=== PATIENT | female | born 1980 | race African-American/Black ===

== ENCOUNTER 2016-05-16 20:02 | Emergency (ER) | payer MEDICAID ==
[~2016-05-16] VITALS: Ht 167.6 cm; Wt 110.5 kg
[~2016-05-16 20:02] MED LIST: DEXT5LOZ3 MT; VIST50CA PO
[2016-05-16 20:17] VITALS: BP 139/82; PULSE 65; RESP 18; TEMP 97.9; O2SAT 98
[2016-05-16 21:52] VITALS: BP 139/82; PULSE 65; RESP 18; TEMP 97.9; O2SAT 98
--- NOTE | 2016-05-16 22:30 | PD ---
HPI Chief Complaint: [employer] Internship Problem/Complaint Time Seen by Provider: 22:00 Travel History International Travel<30 days: No Contact w/Intl Traveler<30days: No Traveled to known affect area: No History of Present Illness HPI The patient is a 35-year-old female who states that she was having sex last Monday when she thought a condom may have gotten stuck inside her giving her vaginal irritation. The patient is not known to be allergic to latex. She has had vaginal irritation and itching since. She is Monistat at home and large volumes. She does not think there is any possibility of . She also has dysuria and possible frequency. She denies any fever or flank pain. She denies any nausea, vomiting or diarrhea. She is a frequent visitor to the emergency department and has been here approximately 12 times in 2016. Most of her visits have been for vaginitis and pelvic complaints. PFSH Past Medical History Anemia: Yes Heart Rhythm Problems: Yes (HEART MURMUR) Cardiovascular Problems: Yes (HEART MURMUR) Diminished Hearing: No Endocrine: No Gastrointestinal Disorders: No Immune Disorder: No Musculoskeletal: No Neurologic: No Reproductive: Yes ( and d & C.) Respiratory: No Immunizations Current: Yes Tetanus Vaccination: Unknown Influenza Vaccination: No PNEUMOCCOCAL Vaccine (Year): 2 ?: Not LMP: Apr : 3 Para: 2 Miscarriage: 1 Dilation and Curettage (D&C): Yes (1998) Past Surgical History Section: Yes (X 2) Other Surgery: Yes (C/S X2) Social History Alcohol Use: No Tobacco Use: No Substance Use: No Allergies-Medications (Allergen,Severity, Reaction): Coded Allergies: *MDRO Multi-Drug Resistant Organism (Unverified Adverse Reaction, Unknown , 05/16/16) MRSA finger 10/2014. Reported Meds & Prescriptions Reported Meds & Active Scripts Active No Active Prescriptions or Reported Medications Review of Systems Except as stated in HPI: all other systems reviewed are Neg Physical Exam Narrative GENERAL: The patient is obese, alert, oriented 3 and slight apparent distress with her vaginal discomfort. SKIN: Warm and dry. HEAD: Atraumatic. Normocephalic. EYES: Pupils equal and round. No scleral icterus. No injection or drainage. ENT: No nasal bleeding or discharge. Mucous membranes pink and moist. NECK: Trachea midline. No JVD. CARDIOVASCULAR: Regular rate and rhythm. No murmur appreciated. RESPIRATORY: No accessory muscle use. Clear to auscultation. Breath sounds equal bilaterally. GASTROINTESTINAL: Abdomen soft, non-tender, nondistended. Hepatic and splenic margins not palpable. MUSCULOSKELETAL: No obvious deformities. No clubbing. No cyanosis. No edema. NEUROLOGICAL: Awake and alert. No obvious cranial nerve deficits. Motor grossly within normal limits. Normal speech. PSYCHIATRIC: Appropriate mood and affect; insight and judgment normal. GENITOURINARY: Normal external genitalia without lesions or erythema. Vaginal vault without blood but there is a copious white discharge in the vault which the patient states is mostly Monistat. This took a fair amount of time to clean out so that I could see the vault. No condom was noted but the vaginal wall was irritated.. Cervical os was closed without drainage. No cervical motion tenderness. Uterus nontender and nonenlarged. Bilateral adnexa nontender without masses. Data Data Last Documented VS Vital Signs Date Time Temp Pulse Resp B/P Pulse Ox O2 Delivery O2 Flow Rate FiO2 05/16/16 22:56 56 18 155/78 98 Room Air 05/16/16 21:52 97.9 Orders Urinalysis - C+S If Indicated (05/16/16 22:21) Ed Urine Pregnancytest Poc (05/16/16 22:21) Gc And Chlamydia Pcr (05/16/16 22:21) Wet Prep Profile (05/16/16 22:21) Labs Laboratory Tests Test 05/16/16 22:30 Urine Collection Type CLEAN CATCH Urine Color YELLOW Urine Turbidity MOD Urine pH 6.0 Urine Specific [place] 1.015 Urine Protein NEG mg/dL Urine Glucose (UA) NEG mg/dL Urine Ketones NEG mg/dL Urine Occult Blood TRACE Urine Nitrite NEG Urine Bilirubin NEG Urine Leukocyte Esterase MOD Urine RBC 4-9 /hpf Urine WBC 3-5 /hpf Urine Squamous Epithelial > 8 /hpf Cells Urine Bacteria OCC /hpf Urine Mucus OCC /lpf Microscopic Urinalysis Comment CULT NOT INDICATED Clue Cells (Wet Prep) NONE SEEN Vaginal Trichomonas (Wet Prep) NONE SEEN Vaginal Yeast (Wet Prep) NONE SEEN MDM Medical Decision Making Medical Screen Exam Complete: Yes Emergency Medical Condition: Yes Medical Record Reviewed: Yes Differential Diagnosis Retained vaginal foreign body, vaginitis, bacterial vaginosishighly unlikely, yeast infectionunlikely, Trichomonas vaginitisunlikely Narrative Course The patient appears to have vaginitis. The laboratory on the wet prep shows none of the other possibilities are present. The vaginitis is apparently nonspecific. 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 Diagnosis Primary Impression: Vaginitis Additional Instructions: As we discussed, use a vinegar douche. There is no evidence for any other cause of the vaginal discharge. Med/Other Pt SpecificInfo: No Change to Meds Scripts No Active Prescriptions or Reported Meds Disposition: DISCHARGE HOME Condition: Stable Mata Irizarry MD May 16, 2016 22:29
[2016-05-16 22:51] LABS: BLOOD, URINE TRACE (NEG); GLUCOSE,URINE NEG (NEG); KETONE, URINE NEG (NEG); NITRITE,URINE NEG (NEG)
[2016-05-16 22:56] VITALS: BP 155/78; PULSE 56; RESP 18; O2SAT 98
[2016-05-16 23:07] LABS: BACTERIA, URINE OCC /hpf; METHOD OF COLLECTION CLEAN CATCH; MUCUS URINE OCC /lpf (OCC); SQUAMOUS EPITHELIAL CELL URINE > 8 /hpf (0-5); URINE COLOR YELLOW (YELLW/STRAW)
[2016-05-16 23:10] LABS: COMMENT (UR) CULT NOT INDICATED; CULTURE IF INDICATED CULT NOT INDICATED
[2016-05-17 11:52] LABS: CHLAMYDIA PCR NOT DETECTED (NOT DETECT); NEISSERIA PCR NOT DETECTED (NOT DETECT)
== END 2016-05-16 23:47 | disposition home or self-care (01) ==
LOC: PHED 20:02
DX: N76.0 Acute vaginitis (principal); R30.0 Dysuria; Z86.2 Personal history of diseases of the blood and blood-forming organs and certain disorders involving the immune mechanism; Z86.79 Personal history of other diseases of the circulatory system; Z87.42 Personal history of other diseases of the female genital tract
CPT/HCPCS: 81001; 84703; 87210; 87491; 87591; 99283

== ENCOUNTER 2016-08-13 09:30 | Emergency (ER) | payer MEDICAID ==
[2016-08-13 09:36] VITALS: BP 151/56; PULSE 94; RESP 18; TEMP 97.4; O2SAT 98
[2016-08-13] MEDS ORDERED: ZOFR4TAB PO (11:40)
== END 2016-08-13 09:52 | disposition left against medical advice (07) ==
LOC: PHED 09:30
DX: R73.9 Hyperglycemia, unspecified (principal)
CPT/HCPCS: 99281

== ENCOUNTER 2016-08-13 11:08 | Emergency (ER) | payer MEDICAID ==
[~2016-08-13] VITALS: Ht 170.2 cm; Wt 106.0 kg
[2016-08-13 11:10] VITALS: BP 133/95; PULSE 88; RESP 18; TEMP 98.6; O2SAT 99
--- NOTE | 2016-08-13 11:38 | PD ---
HPI Chief Complaint: GI Complaint Time Seen by Provider: 11:17 Travel History International Travel<30 days: No Contact w/Intl Traveler<30days: No Traveled to known affect area: No History of Present Illness HPI The patient was seen and examined in the presence of the nurse. She complains of nausea vomiting diarrhea. Duration one day. Multiple other family members have the same symptoms. No fever. She says that she is 4 weeks but plans on getting an and has had no care. Symptoms severity is mild. Patient came here earlier today but left and then drove herself back in now for evaluation [facility] Past Medical History Anemia: Yes Heart Rhythm Problems: Yes (HEART MURMUR) Cardiovascular Problems: Yes (HEART MURMUR) Diminished Hearing: No Endocrine: No Gastrointestinal Disorders: No Immune Disorder: No Musculoskeletal: No Neurologic: No Reproductive: Yes ( and d & C.) Respiratory: No Immunizations Current: Yes PNEUMOCCOCAL Vaccine (Year): 2 ?: Unknown : 3 Para: 2 Miscarriage: 1 Dilation and Curettage (D&C): Yes (1998) Past Surgical History Section: Yes (X 2) Other Surgery: Yes (C/S X2) Social History Alcohol Use: No Tobacco Use: No Substance Use: No Allergies-Medications (Allergen,Severity, Reaction): Coded Allergies: *MDRO Multi-Drug Resistant Organism (Unverified Adverse Reaction, Unknown , 08/13/16) MRSA finger 10/2014. Reported Meds & Prescriptions Reported Meds & Active Scripts Active No Active Prescriptions or Reported Medications Review of Systems General / Constitutional: No: Fever HENT: No: Headaches Cardiovascular: No: Chest Pain or Discomfort Physical Exam Narrative GASTROINTESTINAL: Abdomen soft, non-tender, nondistended. Positive bowel sounds. No hepato-splenomegaly, or palpable masses. No guarding. SKIN: Focused skin assessment reveals no rash or ulcers. Skin is warm and dry. Palpation shows no induration or nodules. NECK: Symmetrical appearance, midline trachea. No mass or crepitus. Thyroid without enlargement, tenderness, or mass. Data Data Last Documented VS Vital Signs Date Time Temp Pulse Resp B/P Pulse Ox O2 Delivery O2 Flow Rate FiO2 08/13/16 11:10 98.6 88 18 133/95 99 MDM Medical Decision Making Medical Screen Exam Complete: Yes Emergency Medical Condition: Yes Medical Record Reviewed: Yes Differential Diagnosis Gastroenteritis, colitis, food poisoning Narrative Course I have reviewed the patient's electronic medical record. I gave her prescription for Zofran She is euvolemic Benign abdomen with normal vital signs The patient was advised to follow up with their physician and return if they worsen. I have recommended clear liquids for 24 hours, then gradually advance as tolerated. Diagnosis Primary Impression: Nausea vomiting and diarrhea Additional Instructions: The patient was advised to follow up with their physician and return if they worsen. I have recommended clear liquids for 24 hours, then gradually advance as tolerated. Med/Other Pt SpecificInfo: Prescription(s) given Scripts No Active Prescriptions or Reported Meds Disposition: DISCHARGE HOME Condition: Stable Bayron Dominguez MD Aug 13, 2016 11:38
[2016-08-13] MEDS ORDERED: ZOFR4TAB PO (11:40)
== END 2016-08-13 11:50 | disposition home or self-care (01) ==
LOC: PHED 11:08
DX: O21.9 Vomiting of pregnancy, unspecified (principal); Z3A.01 Less than 8 weeks gestation of pregnancy
CPT/HCPCS: 99283

== ENCOUNTER 2017-01-23 22:29 | Emergency (ER) | payer MEDICAID ==
[~2017-01-23] VITALS: Ht 170.2 cm; Wt 98.2 kg
[~2017-01-23 22:29] MED LIST changes: -DEXT5LOZ3 MT; -VIST50CA PO; +ZOFR4TAB PO
[2017-01-23 22:30] VITALS: BP 169/103; PULSE 87; RESP 16; TEMP 97.8; O2SAT 99
[2017-01-23] MEDS ORDERED: ERYTOIN10 EACH EYE (22:52)
--- NOTE | 2017-01-23 22:53 | PD ---
HPI . Conjunctivitis Chief Complaint: Eye Problems/Injury Time Seen by Provider: 22:36 Travel History International Travel<30 days: No Contact w/Intl Traveler<30days: No Traveled to known affect area: No History of Present Illness HPI 36-year-old female presents to the emergency department for evaluation of irritation of bilateral eye. Patient states the symptoms have been present for 2 days. Her son has been treated for conjunctivitis recently. The symptoms started in her right eye and then transferred to her left eye. The patient states when she wakes up after sleeping her eyes are crusted shut. She has mild injection in bilateral sclera. She denies any fevers, chills, malaise, headaches, lightheadedness. She denies any blurred vision. Patient denies any major medical history and doesn't take any daily medication. Patient is not a contact lens wearer or eyeglass wearer. PFSH Past Medical History Anemia: Yes Heart Rhythm Problems: Yes (HEART MURMUR) Cardiovascular Problems: Yes (Heart murmur) Diminished Hearing: No Endocrine: No Gastrointestinal Disorders: No Immune Disorder: No Musculoskeletal: No Neurologic: No Reproductive: Yes ( and d & C.) Respiratory: No Immunizations Current: Yes Tetanus Vaccination: Unknown Influenza Vaccination: No PNEUMOCCOCAL Vaccine (Year): 2 ?: Not : 4 Para: 3 Miscarriage: 1 Dilation and Curettage (D&C): Yes (X's 1) Past Surgical History Section: Yes (X's 3) Gynecologic Surgery: Yes (TUBAL LIGATION AND D&C) Other Surgery: Yes (C/S X2) Social History Alcohol Use: No Tobacco Use: No Substance Use: No Allergies-Medications (Allergen,Severity, Reaction): Coded Allergies: *MDRO Multi-Drug Resistant Organism (Unverified Adverse Reaction, Unknown , 08/13/16) MRSA finger 10/2014. Reported Meds & Prescriptions Reported Meds & Active Scripts Active Erythromycin Opth Oint 5 Mg/Gm Oint 1 Applic EACH EYE QID 7 Days Zofran (Ondansetron HCl) 4 Mg Tab 4 Mg PO Q6HR PRN Review of Systems Except as stated in HPI: all other systems reviewed are Neg Physical Exam Narrative GENERAL: Well-nourished, well-developed patient. SKIN: Focused skin assessment warm/dry. HEAD: Normocephalic. EYES: Bilateral sclera mildly injected. PERRLA demonstrated, extraocular motions intact bilaterally. Visual acuity: Left: 20/40 Right: 20/40 bilateral: 20/30 NECK: Supple, trachea midline. No JVD or lymphadenopathy. CARDIOVASCULAR: Regular rate and rhythm without murmurs, gallops, or rubs. RESPIRATORY: Breath sounds equal bilaterally. No accessory muscle use. GASTROINTESTINAL: Abdomen soft, non-tender, nondistended. MUSCULOSKELETAL: No cyanosis, or edema. BACK: Nontender without obvious deformity. No CVA tenderness. Data Data Last Documented VS Vital Signs Date Time Temp Pulse Resp B/P (MAP) Pulse Ox O2 Delivery O2 Flow Rate FiO2 01/23/17 22:56 01/23/17 22:30 97.8 87 16 99 [facility] Medical Decision Making Medical Screen Exam Complete: Yes Emergency Medical Condition: Yes Differential Diagnosis Differential diagnoses include but not limited to bacterial conjunctivitis, viral conjunctivitis, allergies Narrative Course 36-year-old female presents emergency department for evaluation of bilateral eye irritation that started 2 days ago. Patient denies any fevers chills malaise. Patient denies any blurred vision. Patient states her son was recently treated for conjunctivitis. Bilateral sclera mildly injected. Based on patient's symptoms, clinical presentation, vital sign review and physical exam it is not necessary to admit the patient to the hospital or keep the patient in the emergency department for further evaluation. Patient will be discharged given a prescription for erythromycin ophthalmic ointment and home. Diagnosis Primary Impression: Acute contagious conjunctivitis of both eyes Patient Instructions: Conjunctivitis (ED), General Instructions Departure Forms: Tests/Procedures, Work Release Enter return to work date: Jan 25, 2017 Additional Instructions: Please return to emergency department if your symptoms return or worsen. Follow up with your primary care provider. Wash hands frequently. Take medications as prescribed. Med/Other Pt SpecificInfo: Prescription(s) given Scripts Erythromycin Opth Oint (Erythromycin Opth Oint) 5 Mg/Gm Oint 1 APPLIC EACH EYE QID for Infection for 7 Days, #1 TUBE 0 Refills Prov: MirlandeMaryjane 01/23/17 Disposition: 01 DISCHARGE HOME Condition: Stable Maryjane Nogueira Jan 23, 2017 22:53
== END 2017-01-23 23:04 | disposition home or self-care (01) ==
LOC: PHEFT 22:29
DX: H10.33 Unspecified acute conjunctivitis, bilateral (principal)
CPT/HCPCS: 99283

== ENCOUNTER 2017-02-07 23:35 | Emergency (ER) | payer MEDICAID ==
[~2017-02-07] VITALS: Ht 170.2 cm; Wt 96.4 kg
[~2017-02-07 23:35] MED LIST changes: +ERYTOIN10 EACH EYE
[2017-02-07 23:49] VITALS: BP 144/94; PULSE 86; RESP 18; TEMP 98.3; O2SAT 100
--- NOTE | 2017-02-08 00:25 | PD ---
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 On 01/26/17 the patient took a morning after pill use and 24 hours after having sexual intercourse. About 2 days later she began to notice heavy vaginal bleeding. She has placed several tampons in her vagina and believes that there are 2 of them still in her vagina. She believes that they have been in there since Monday which is 3 days ago. She denies fevers. No abdominal pain. No rash. States that her bleeding has lessened. She does have history of anemia. No history of coagulopathy. She is sexually active with one partner. PFSH Past Medical History Anemia: Yes Heart Rhythm Problems: Yes (HEART MURMUR) Cardiovascular Problems: Yes (Heart murmur) Diminished Hearing: No Endocrine: No Gastrointestinal Disorders: No Immune Disorder: No Musculoskeletal: No Neurologic: No Reproductive: Yes ( and d & C.) Respiratory: No Immunizations Current: Yes PNEUMOCCOCAL Vaccine (Year): 2 ?: Unknown : 4 Para: 3 Miscarriage: 1 Dilation and Curettage (D&C): Yes (X's 1) Past Surgical History Section: Yes (X's 3) Gynecologic Surgery: Yes (TUBAL LIGATION AND D&C) Other Surgery: Yes (C/S X2) Social History Alcohol Use: No Tobacco Use: No Substance Use: No Allergies-Medications (Allergen,Severity, Reaction): Coded Allergies: *MDRO Multi-Drug Resistant Organism (Unverified Adverse Reaction, Unknown , 02/08/17) MRSA finger 10/2014. Reported Meds & Prescriptions Reported Meds & Active Scripts Active No Active Prescriptions or Reported Medications Review of Systems Except as stated in HPI: all other systems reviewed are Neg Physical Exam Narrative GENERAL: Well-developed, well-nourished, comfortable, no apparent distress. SKIN: Focused skin assessment warm/dry. No rash. CARDIOVASCULAR: Regular rate and rhythm. RESPIRATORY: No accessory muscle use. Clear to auscultation. Breath sounds equal bilaterally. GASTROINTESTINAL: Abdomen soft, non-tender, nondistended. DOLL SURGEON: Exam performed in the presence of female nurse. Normal external genitalia. One retained tampon in the posterior vaginal vault that was removed using Lucina forceps. No other foreign bodies noted. Cervix appears normal. Scant bleeding from cervical os. No CMT. No adnexal masses or tenderness. The remove tampon was very foul smelling and brown. MUSCULOSKELETAL: No obvious deformities. No clubbing. No cyanosis. No edema. NEUROLOGICAL: Awake and alert. No obvious cranial nerve deficits. Motor grossly within normal limits. Normal speech. PSYCHIATRIC: Appropriate mood and affect; insight and judgment normal. Data Data Last Documented VS Vital Signs Date Time Temp Pulse Resp B/P (MAP) Pulse Ox O2 Delivery O2 Flow Rate FiO2 02/07/17 23:49 98.3 86 18 144/94 (111) 100 Orders Orders Complete Blood Count With Diff (02/08/17 00:22) Basic Metabolic Panel (Bmp) (02/08/17 00:22) Gc And Chlamydia Pcr (02/08/17 00:22) Wet Prep Profile (02/08/17 00:22) Urinalysis - C+S If Indicated (02/08/17 00:22) Ed Urine Pregnancytest Poc (02/08/17 00:22) Metronidazole (Flagyl) (02/08/17 00:45) Labs Laboratory Tests Test 02/08/17 00:20 02/08/17 00:30 02/08/17 00:55 Clue Cells (Wet Prep) PRESENT Vaginal Trichomonas (Wet Prep) NONE SEEN Vaginal Yeast (Wet Prep) NONE SEEN White Blood Count 7.8 TH/MM3 Red Blood Count 3.90 MIL/MM3 Hemoglobin 11.8 GM/DL Hematocrit 34.8 % Mean Corpuscular Volume 89.4 FL Mean Corpuscular Hemoglobin 30.4 PG Mean Corpuscular Hemoglobin Concent 34.0 % Red Cell Distribution Width 12.6 % Platelet Count 403 TH/MM3 Mean Platelet Volume 7.5 FL Neutrophils (%) (Auto) 64.2 % Lymphocytes (%) (Auto) 29.5 % Monocytes (%) (Auto) 5.4 % Eosinophils (%) (Auto) 0.6 % Basophils (%) (Auto) 0.3 % Neutrophils # (Auto) 5.1 TH/MM3 Lymphocytes # (Auto) 2.3 TH/MM3 Monocytes # (Auto) 0.4 TH/MM3 Eosinophils # (Auto) 0.0 TH/MM3 Basophils # (Auto) 0.0 TH/MM3 CBC Comment DIFF FINAL Differential Comment Blood Urea Nitrogen 9 MG/DL Creatinine 0.77 MG/DL Random Glucose 98 MG/DL Calcium Level 8.3 MG/DL Sodium Level 139 MEQ/L Potassium Level 3.4 MEQ/L Chloride Level 105 MEQ/L Carbon Dioxide Level 29.3 MEQ/L Anion Gap 5 MEQ/L Estimat Glomerular Filtration Rate 102 ML/MIN Urine Color YELLOW Urine Turbidity SLIGHT Urine pH 5.5 Urine Specific [place] 1.015 Urine Protein NEG mg/dL Urine Glucose (UA) NEG mg/dL Urine Ketones NEG mg/dL Urine Occult Blood MOD Urine Nitrite NEG Urine Bilirubin NEG Urine Leukocyte Esterase NEG Urine RBC 0-3 /hpf Urine WBC 0-2 /hpf Urine Squamous Epithelial Cells 0-5 /hpf Urine Calcium Oxalate Crystals FEW /hpf Urine Amorphous Sediment SMALL Urine Bacteria FEW /hpf Urine Mucus FEW /lpf Microscopic Urinalysis Comment CULT NOT INDICATED MDM Medical Decision Making Medical Screen Exam Complete: Yes Emergency Medical Condition: Yes Differential Diagnosis Retained tampon, anemia, PID, BV, toxic shock syndrome unlikely Narrative Course Vital signs show heart rate 86, blood pressure 144/94, pulse ox 100% on room air , oral temp of 98.3F. CBC: WBC 7.8, hemoglobin 11.8, hematocrit 34.8, platelets 403. BMP is unremarkable. Urine is negative. UA is not suggestive of UTI. Wet prep is positive for clue cells, negative for yeast, negative for Trichomonas. The patient will be started on Flagyl. She has no signs or symptoms to suggest toxic shock syndrome. Her abdominal exam shows no tenderness. She is stable for discharge home with outpatient follow-up with her primary care physician or online marketing manager this week. She was informed on when to return to the emergency department. She verbalizes understanding and agreement with plan. Diagnosis Primary Impression: Retained tampon Qualified Codes: T19.2XXA - Foreign body in vulva and vagina, initial encounter Additional Impression: Bacterial vaginosis Referrals: Cutting And Creasing Press Operator 3 days Primary Care Physician 3 days Additional Instructions: Follow-up with your primary care physician or online marketing manager this week. Return to the emergency department for worsening symptoms or any other concerns. Scripts Metronidazole (Flagyl) 500 Mg Tab 500 MG PO BID for Infection for 7 Days, #14 TAB 0 Refills Prov: Jose L Coffey MD 02/08/17 Disposition: 01 DISCHARGE HOME Condition: Stable Jose L Coffey MD Feb 08, 2017 00:25
[2017-02-08 00:39] LABS: AUTOMATED NEUTROPHIL # 5.1 TH/MM3 (1.8-7.7); BASOPHIL % 0.3 % (0.0-2.0); EOSINOPHIL % 0.6 % (0.0-4.0); HEMATOCRIT 34.8 % (35.0-46.0); HEMOGLOBIN 11.8 GM/DL (11.6-15.3); LYMPH % 29.5 % (9.0-44.0); LYMPHOCYTE # 2.3 TH/MM3 (1.0-4.8); MEAN CELL VOLUME 89.4 FL (80.0-100.0); MEAN CORPUSCULAR HEMOGLOBIN 30.4 PG (27.0-34.0); MEAN PLATELET VOLUME 7.5 FL (7.0-11.0); MONO % 5.4 % (0.0-8.0); MONOCYTE # 0.4 TH/MM3 (0-0.9); NEUT % 64.2 % (16.0-70.0); PLATELET COUNT 403 TH/MM3 (150-450); RED CELL DISTRIBUTION WIDTH 12.6 % (11.6-17.2); WHITE BLOOD COUNT 7.8 TH/MM3 (4.0-11.0)
[2017-02-08] MEDS ORDERED: metroNIDAZOLE 500 MG TAB PO ONE (00:45)
[2017-02-08 00:48] LABS: CALCIUM 8.3 MG/DL (8.5-10.1)
[2017-02-08 00:49] LABS: BICARBONATE 29.3 MEQ/L (21.0-32.0)
[2017-02-08 00:52] LABS: CREATININE 0.77 MG/DL (0.50-1.00)
[2017-02-08 01:06] LABS: BILIRUBIN, URINE NEG (NEG); BLOOD, URINE MOD (NEG); GLUCOSE,URINE NEG (NEG); KETONE, URINE NEG (NEG); NITRITE,URINE NEG (NEG); PH, URINE 5.5 (5.0-8.5); URINE LEUKOCYTE ESTERASE NEG (NEG)
[2017-02-08 01:13] LABS: MUCUS URINE FEW /lpf (OCC); URINE COLOR YELLOW (YELLW/STRAW)
[2017-02-08 01:14] LABS: CALCIUM OXALATE CRYSTALS,URINE FEW /hpf; RBC, URINE 0-3 /hpf (0-3); SQUAMOUS EPITHELIAL CELL URINE 0-5 /hpf (0-5)
[2017-02-08 01:15] LABS: AMORPHOUS SEDIMENT, URINE SMALL
[2017-02-08 01:19] LABS: BACTERIA, URINE FEW /hpf; WBC, URINE 0-2 /hpf (0-5)
[2017-02-08] MEDS ORDERED: METR-1 PO (01:25)
[2017-02-08 01:34] VITALS: BP 151/76
== END 2017-02-08 01:34 | disposition home or self-care (01) ==
LOC: PHED 23:35
DX: T19.2XXA Foreign body in vulva and vagina, initial encounter (principal); N76.0 Acute vaginitis
CPT/HCPCS: 80048; 81001; 84703; 85025; 87210; 87491; 87591; 99284